=== PATIENT | female | born 1990 | race Caucasian/White ===

== ENCOUNTER 2016-09-24 13:50 | Observation (INO) ==
--- NOTE | 2016-09-24 14:39 | OB/GYN Progress Note ---
Date of Encounter: 09/24/16 Time of Encounter: 14:38 - Assessment and Plan (1) 35 weeks gestation of Current Visit: Yes Status: Acute (2) NST (non-stress test) reactive Current Visit: Yes Status: Acute (3) Vaginal bleeding Current Visit: Yes Status: Acute Pt reports bleeding started with intercourse and is now just a scant amount dark blood. Her pain has improved spontaneously. Good FM. Discharge home with precautions. Subjective - Subjective Interval history: 26 year-old presenting at 35 weeks with c/o bleeding since having sex last night and abdominal pain. She states that the bleeding is getting darker in color and less in amount. She also reports that since arrival to triage her pain has stopped. No other complaints. Good FM. No LOF. Antepartum ROS: vaginal bleeding, movement normal, contractions, no loss of fluid Objective - Vital Signs Vital Signs: Intake and Output 09/23/16 09/24/16 09/24/16 23:59 07:59 15:59 Other: Weight 77.3 kg Patient Weight 09/24/16 23:59 Weight 77.3 kg - Exam FHR: category 1 FHR comments: NST reactive Auscultation: bilateral: normal Abdomen: Present: soft, gravid. Absent: tenderness Uterus: Present: normal. Absent: tenderness
[2016-09-24 16:59] LABS: Bilirubin,Urine Negative (Negative); Blood,Urine Small (Negative); Clarity,Urine Turbid (Clear); Color,Urine Dark Yellow (Yellow); Glucose,Urine (UA) Normal (Normal); Ketones,Urine Negative (Negative); Leukocyte Esterase,Urine Negative (Negative); Nitrite,Urine Negative (Negative); PH,Urine 7.5 pH Units (5.0-8.0); Protein,Urine Trace mg/dL (Neg-Trace); Specific Gravity,Urine 1.019 (1.010-1.025); Urobilinogen,Urine Normal (Normal)
[2016-09-24 17:01] LABS: Bacteria,Urine Moderate per hpf (None-Few); RBC,Urine 0-3 per hpf (0-3); Squamous Epithelial Cell,Urine Many per lpf (None-Few)
[2016-09-24 17:14] LABS: Amorphous Sediment,Urine Moderate (Few); Hyaline Casts,Urine Few per lpf (None-Few); Renal Epithelial Cells,Urine Few per hpf (None-Few)
== END 2016-09-24 15:16 | disposition home or self-care (01) ==
LOC: 1NENULAB
PROVIDERS: ADMIT Obstetrics & Gynecology; ATTEND Obstetrics & Gynecology

== ENCOUNTER 2016-10-01 20:57 | Observation (INO) ==
[2016-10-01 21:47] LABS: Bilirubin,Urine Negative (Negative); Blood,Urine Negative (Negative); Clarity,Urine Turbid (Clear); Color,Urine Yellow (Yellow); Glucose,Urine (UA) Normal (Normal); Ketones,Urine Negative (Negative); Leukocyte Esterase,Urine Trace (Negative); Nitrite,Urine Negative (Negative); PH,Urine 7.5 pH Units (5.0-8.0); Protein,Urine Negative (Neg-Trace); Urobilinogen,Urine Normal (Normal)
[2016-10-01 21:50] LABS: Bacteria,Urine Few per hpf (None-Few); Hyaline Casts,Urine None Seen per lpf (None-Few); RBC,Urine 0-3 per hpf (0-3); Squamous Epithelial Cell,Urine Many per lpf (None-Few)
[2016-10-01 22:01] LABS: Amorphous Sediment,Urine Few (Few)
--- NOTE | 2016-10-02 11:53 | OB/GYN Progress Note ---
Date of Encounter: 10/01/16 Time of Encounter: 22:00 - Assessment and Plan (1) False labor Status: Acute SVE unchanged per RN. Discharge home with precautions. (2) 36 weeks gestation of Status: Acute Subjective - Subjective Interval history: Pt presented at 36 weeks gestation with c/o contractions since 1300. She was seen and evaluated by nursing staff. Antepartum ROS: movement normal, contractions, no loss of fluid, no vaginal bleeding Objective - Vital Signs Vital Signs: Intake and Output 10/01/16 10/02/16 10/02/16 23:59 07:59 15:59 Other: Weight 79.9 kg - Exam FHR comments: Reactive NST per RN - Labs Labs: Abnormal lab results Urine Clarity Turbid (Clear) A 10/01/16 21:30 Ur Leukocyte Esterase Trace (Negative) H 10/01/16 21:30 Urine Microscopic WBC 5-15 per hpf (0-3) H 10/01/16 21:30 Ur Squamous Epith Cells Many per lpf (None-Few) H 10/01/16 21:30 Ur Culture Indicated? YES (NO) A 10/01/16 21:30
== END 2016-10-01 22:30 | disposition home or self-care (01) ==
LOC: 1NENULAB
PROVIDERS: ADMIT Registered Nurse; ATTEND Registered Nurse

== ENCOUNTER 2016-10-08 20:53 | Inpatient (IN) ==
--- NOTE | 2016-10-08 17:18 | OB/GYN Progress Note ---
Date of Encounter: 10/08/16 Time of Encounter: 17:15 - Assessment and Plan (1) 37 weeks gestation of Current Visit: Yes Status: Acute Patient at 37 weeks and 1 day. Today in the office she was 4-5cm with a bulging sac. Will monitor patient here for any progression of lab. Will continue to monitor heart tones and contractions. Subjective - Subjective Principal diagnosis: 37 weeks gestation sent from office Interval history: Ms iLma is a 26yo female at 37 weeks and 1 day sent over from the office at 4-5cm with a bulging sac for labor evaluation. Patient reports contractions for the last week on and off and good movement. She denies any vaginal bleeding, discharge or fluid loss Patient reports that she feels fatigued but well overall and denies headache, vision changes, chest pain, SOB, changes in bowel or bladder. She is currently on subutex and she does smoke daily. Antepartum ROS: movement normal, contractions, no loss of fluid, no vaginal bleeding Objective - Vital Signs Vital Signs: Intake and Output 10/08/16 10/08/16 10/08/16 07:59 15:59 23:59 Other: Weight 79.8 kg Patient Weight 10/08/16 23:59 Weight 79.8 kg - Exam FHR: category 1 Auscultation: bilateral: normal Abdomen: Present: soft, gravid Cervical dilation: 4-5 cm
[~2016-10-08 20:53] MED LIST: Famotidine 20 MG/2 ML VIAL IVP PRN; Naloxone 0.4 MG/ML INJ IVP PRN; Ondansetron 4 MG/2 ML VIAL IVP PRN
--- NOTE | 2016-10-08 20:55 | OB/GYN History & Physical ---
Date of Encounter: 10/08/16 Time of Encounter: 20:52 Assessment and Plan (1) complicated by subutex maintenance, antepartum Current visit: Yes Status: Acute Continue subutex maintenance cord stat Infant 5 day hold (2) Tobacco use affecting in third trimester, antepartum Current visit: Yes Status: Acute smoking cessation education (3) 37 weeks gestation of Current visit: Yes Status: Acute Admit for spontaneous labor advanced dilatation and bulging membranes of a multigravida. May have Epidural for pain management if desires History of Present Illness Chief complaint: Advanced cervical dilation, Spontaneous labor HPI: Ms. Gonzales is a 26 year old female is a at 37w1d presents to labor and delivery from OB office for evaluation due to advanced dilation 4.5/80/-1 and bulging membranes. Patient reported irregular contractions, +FM, Denies LOF. Patient is is currently on Subutex 8mg po BID and an everyday smoker. After being monitored for a couple of hours patient progressed to 5.5/80/-1. We continued labor evaluation and patient progressed to /1. Patient was then admitted for delivery. Blood type: A+, Rubella: Immune, Hep B: nonreactive. GBS : Negative Past Med Surg Social Fam HX - Past Medical History Source: patient Medical history: asthma Psychiatric history: no psych history - Past Surgical History Surgical History: no surgical history - Social History Smoking Status: Current every day smoker Packs per day: 1 Smokeless Tobacco Status: No Alcohol use: none Drug use: none Current living situation: Home - Independent Activity Level: Independent ambulation Recent Out of Country Travel Within the Last 8 Weeks: No Exposure or Possible Exposure to Illness During Travel: No - Family History Mother Adopted: No Family Member Ethnicity: Non- Living Status: Hx Family Cardiac Disorders: Yes (MOTHER OF HEART ATTACK) Hx Family Respiratory Disorders: No Hx Family Cancer: No Hx Family GI Disorders: No Hx Family Endocrine Disorder: No Hx Family Neuromuscular Disorders: No Hx Family Neurologic Disorders: No Hx Family HEENT Disorders: No Hx Family Autoimmune Disorders: No Obstetrical History - Pregnancies : 5 Para: 3 Term: 3 : 0 Ab's: 1 Livin Medications and Allergies Subutex 8 mg PO BID 04/19/15 [History] Pnv95/Ferrous Fumarate/FA [ Caplet] 1 tab PO DAILY 10/01/16 [History] Albuterol Sulfate [Albuterol Inhaler] 2 puff IH Q4HR 10/08/16 [History] Allergies No Known Allergies Allergy (Verified 10/01/16 21:06) Review of System OB - Constitutional Constitutional ROS IM: no chills, no fever(s), no headache(s) - Cardiovascular Cardiovascular: pedal edema, no chest pain, no lightheadedness, no palpitations , no syncope - Respiratory Respiratory: no cough, no dyspnea - Gastrointestinal Gastrointestinal: no abdominal pain, no diarrhea, no heartburn, no nausea, no vomiting - Genitourinary Genitourinary: vaginal discharge, no abnormal vaginal bleeding, no dysuria, no flank pain, no urinary frequency, no urinary urgency, no vaginal odor Exam - Constitutional Constitutional: well developed, well nourished, no acute distress, average body habitus - HEENT HEENT: Normocephaly, Mucus Membranes Moist - Neck Neck exam: full ROM, supple - Lungs Respiratory exam: CTAB - Cardiovascular Cardiovascular exam: RRR, +S1, +S2 - Abdomen Abdomen: Present: bowel sounds normal, gravid, non tender - Extremities Extremities exam: normal capillary refill, normal inspection, pedal edema (2+) Deep Tendon Reflex Grade: 2+ Normal (no clonus) - Vagina Vagina: Present: normal moisture - Cervix Dilation: 6 Effacement: 90 Station: -1 - Uterus Uterus exam: Present: normal size - Anus/Rectum Anus/Rectum: Present: normal perianal skin (FHR 135 bpm moderate variability + 15x15 accels no decels noted. Cat. 1 tracing. Contractions 3-5 min apart.) Results All other labs normal. - VTE Reasons for not Prescribing Prophylaxis: Treatment not Indicated - Low risk for VTE
[2016-10-08 21:06] LABS: Basophils % 0.4 %; Eosinophils # 0.2 K/mcL (0.0-0.6); Eosinophils % 1.7 %; Hematocrit 33.6 % (35.3-44.9); Immature Granulocytes % 0.8 % (0-4); Lymphocytes % 21.4 %; Mean Corpuscular HGB Conc 32.7 g/dL (31.6-35.5); Mean Corpuscular Hemoglobin 27.7 pg (28.0-33.3); Mean Corpuscular Volume 84.6 fL (83.0-100.0); Mean Platelet Volume 10.2 fL (9.4-12.4); Monocytes # 0.6 K/mcL (0.0-1.3); Monocytes % 6.4 %; Neutrophils # 6.6 K/mcL (1.6-8.9); Platelet Count 346 K/mcL (140-400); Red Blood Count 3.97 M/mcL (3.82-4.97); Red Cell Distribution Width 14.4 % (11.5-14.5); Segmented Neutrophils % 69.3 %
[2016-10-08] MEDS: Ringers Solution, Lactated 1,000 ML IVC SCH (22:40)
[2016-10-08] MEDS ORDERED: Epidural Premix (fent/bupiv) 110 ML EP SCH (23:15)
[2016-10-08] MEDS ORDERED: Epidural Premix (fent/bupiv) 110 ML EP ONE (23:17)
--- NOTE | 2016-10-08 23:21 | Anesthesia Evaluation PreOp ---
Date of Encounter: 10/08/16 Time of Encounter: 23:18 - Past History Planned Operation: RODRÍGUEZ Cardiac History: Denies any Significant Hx Pulmonary History: Smoker, Asthma (INHALER YESTERDAY) FELL CUTTER History: Denies Any Significant HX Other Medical History: Denies Any Significant HX Anesthesia History: Past Anesthesia (EPIDURALS X 3) : Yes (37) Test: Positive Alcohol Use: none Drug use: none Medications and Allergies Subutex 8 mg PO BID 04/19/15 [History] Pnv95/Ferrous Fumarate/FA [ Caplet] 1 tab PO DAILY 10/01/16 [History] Albuterol Sulfate [Albuterol Inhaler] 2 puff IH Q4HR 10/08/16 [History] Allergies No Known Allergies Allergy (Verified 10/01/16 21:06) Anesthesia Results - Labs 10/08/16 20:55 Anesthesia Exam 112/57 fht 137 91 99% 16 Height: 65 Weight: 174 NPO (# of Hours): MN Pain Scale: 7 - HEENT Pupil (Motor): Pupils equal Mallampati: II Teeth: Normal Oral Opening: Greater than 3 - FELL CUTTER LOC: Oriented FELL CUTTER Motor: Normal RUE, Normal LUE, Normal RLE, Normal LLE, Normal Face FELL CUTTER Sensory: Normal: RUE, LUE, RLE, LLE, Face - Cardiac Rhythm: Regular Murmur: None JVD: No Carotid Bruit: No - Pulmonary Breath Sounds: bilateral Clear Respiratory Effort: Symmetrical Anesthesia Assess/Plan ASA Score: 2 Modified Miah Scale for Level of Consciousness: Cooperative, oriented, and tranquil Anesthetic Plan: MAC Autologous Blood: No Monitoring Plan: Standard Monitors
--- NOTE | 2016-10-08 23:53 | Anesthesia Procedures ---
Date of Encounter: 10/08/16 Time of Encounter: 23:50 Procedures: Anesthesia - Epidural/Spinal Patient ID/Chart reviewed: Yes Patient examined: Yes OB Eval: Gestational age: 37.1 OB Eval: : 5 OB Eval: Hx Para: 3 OB Eval: Dilated at (cm): 6 OB Eval: Contractions: Non-stressed pattern Consent Obtained: Yes Supplemental Oxygen: None/Room Air Site Prep: Aseptic Technique, Sterile prep and drape, Povidone-Iodine 1% Patient position: upright Local Anesthetic: Lidocaine 1% Amount of Local Anesthetic used: 3 Touhy Needle Gauge: 18 Touhy Needle Depth (cm): 7 Catheter Depth at Skin (cm): 10 Test Dose (1.5% Lido + Epi): Volume given (mls): 3 Test Dose Result: Negative Loading Dose Administered: Thru Catheter Infusion Med: 0.125% Bupivacaine w/ 2 mcg/ml Fentanyl Infusion Rate (mls/hr): [address]: Tegaderm, Tape Interspace Used: L4-L5 Loss of Resistance (BRIEN): Yes Blood: No CSF: No Paresthesia: No Procedure: RODRÍGUEZ x 2 attempts, first pass catheter with heme, pulled down one space, BRIEN saline, negative heme negative CSF,
--- NOTE | 2016-10-09 00:21 | OB Labor Progress Note ---
Date of Encounter: 10/09/16 Time of Encounter: 00:19 Labor Progress Note - Subjective Subjective: Patient resting comfortably with epidural in place. Discussed POC with patient. Patient denies any questions or concerns. - Cervix Cervix: 7.5/90/0 - Heart Tones Heart Tones: 125 bpm moderate variability +15x15 accels no decels noted. Cat. 1 tracing. - Stark Stark: 4-5 min - Interventions Interventions: SVE, AROM moderate amount of clear fluid. Patient tolerated well. - Plan Plan: Continue labor management.
[2016-10-09] MEDS ORDERED: *HR* FentaNYL (PF) 100 MCG/2 ML VIAL ONE (02:36)
[2016-10-09] MEDS ORDERED: Bupivacaine/EPI 1:200k 0.25%PF 10 ML VIAL INFILT ONE (02:37)
[2016-10-09] MEDS: Ringers Solution, Lactated 1,000 ML IVC SCH (03:32)
[2016-10-09] MEDS ORDERED: Oxytocin 20 units/ LR 1000 mL 20 UNIT/1,000 ML BAG IVC ONE ×2 (03:47→06:52)
[2016-10-09] MEDS ORDERED: Ibuprofen 600 MG TABLET PO ONE (04:26)
--- NOTE | 2016-10-09 04:40 | OB/GYN Procedure Note ---
Delivery - Delivery Date: 10/09/16 Provider: Leslee Gillette Intrapartum events: none Delivery induction: none Delivery augmentation: rupture of membranes Delivery monitor: external FHT, external uterine Anesthesia: epidural Estimated Blood Loss: 300 - (s) Infant A Delivery Date: 10/09/16 Infant Delivery Time: 04:00 Presentation: vertex Position: JAYDON Route of delivery: Gender: Male Viability: Viable Pounds: 7 Ounces: 3 Weight Gram: 3270 kg at 1 minute: 9 at 5 mins: 10 Shoulder Dystocia: not encountered Placenta: spontaneous Cord: 3 umbilical vessels - Repair Episiotomy: none Laceration Description: None - Complications Delivery complications: none Delivery comments: Called to patient's room. Patient was complete and +2 station. Patient was placed in stirrups and prepped for delivery. Patient then began to push with contractions. Patient delivered a viable male infant, was placed on maternal abdomen. No nuchal, shoulder dystocia or meconium was encountered. Perineum was intact. Cord was clamped and cut after pulsation ceased. Placenta delivered spontaneously and intact. was placed skin to skin. Both mother and baby are stable in recovery. - Disposition Mom disposition: stable in LDR [place] disposition: stable in LDR
[2016-10-09] MEDS ORDERED: Oxytocin 20 units/ LR 1000 mL 20 UNIT/1,000 ML BAG IV SCH (06:52)
[2016-10-09] MEDS ORDERED: Lanolin 7 G OINT...G. TP PRN (06:52)
[2016-10-09] MEDS: Prenatal Vit/FA 1 EACH TABLET PO SCH (08:46)
[2016-10-09] MEDS: Acetaminophen 325 MG TABLET PO PRN (08:46)
[2016-10-09] MEDS ORDERED: Patient Taking Own Medication 1 EACH PO SCH (09:00)
[2016-10-09] MEDS: Ibuprofen 600 MG TABLET PO PRN ×2 (12:55→19:48)
[2016-10-10] MEDS: Acetaminophen 325 MG TABLET PO PRN (00:27)
[2016-10-10] MEDS: Ibuprofen 600 MG TABLET PO PRN (05:01)
[2016-10-10] MEDS: Prenatal Vit/FA 1 EACH TABLET PO SCH (07:42)
[2016-10-10 09:49] VITALS: BP 110/66
[2016-10-10] MEDS ORDERED: Albuterol 2.5 MG/3 ML NEBULIZER IH PRN (10:37)
--- NOTE | 2016-10-10 10:40 | Discharge Summary ---
Date of Encounter: 10/10/16 Time of Encounter: 10:38 - Discharge Diagnosis (1) Vaginal delivery Priority: Primary Status: Acute Comments: Pt meeting milestones. - Discharge Medications Prescriptions: Ibuprofen [Motrin] 600 mg PO Q6HR PRN #60 tablet PRN Reason: Cramping Docusate [Colace] 100 mg PO BID #60 capsule Home Medications: Subutex 8 mg PO BID 04/19/15 [History] Pnv95/Ferrous Fumarate/FA [ Caplet] 1 tab PO DAILY 10/01/16 [History] Albuterol Sulfate [Albuterol Inhaler] 2 puff IH Q4HR 10/08/16 [History] Docusate [Colace] 100 mg PO BID #60 capsule 10/10/16 [Rx] Ibuprofen [Motrin] 600 mg PO Q6HR PRN #60 tablet 10/10/16 [Rx] Lanolin [Lansinoh] 1 appl TP TID PRN #0 oint...g. 10/10/16 [Rx] Allergies/Adverse Reactions: Allergies No Known Allergies Allergy (Verified 10/01/16 21:06) Data Procedures and tests throughout hospitalization: Laboratory Tests 10/08/16 20:55 WBC 9.5 RBC 3.97 Hgb 11.0 L Hct 33.6 L MCV 84.6 MCH 27.7 L MCHC 32.7 RDW 14.4 Plt Count 346 MPV 10.2 Immature Gran % 0.8 Seg Neutrophils % 69.3 Lymphocytes % 21.4 Monocytes % 6.4 Eosinophils % 1.7 Basophils % 0.4 Neutrophils # 6.6 Lymphocytes # 2.0 Monocytes # 0.6 Eosinophils # 0.2 Basophils # 0.0 Date of admission: 10/08/16 20:56 Primary care physician: PCP NO Consults: 10/09/16 06:52 Consult to Gun Stock Checker [CONS] Routine Comment: Vaginal delivery, consult needed Consult to Composition Weatherboard Applier [CONS] Routine Reason for SW Consult: subutex RX in Discharging clinician: Alba Patton Anticipated date of discharge: 10/10/16 - Patient Status Disposition: Home, Self-Care Condition: Good Functional capacity at discharge: independent ambulation Overall status at discharge: patient is progressing back to baseline - Discharge Instructions Follow Up With: Alba Patton CNM [Non-Partnered Physician] - (Feb. 27, 2017 @ 3:00 pm) NO,PCP [Primary Care Provider] - - Diet and Activity Activity: increase activity as tolerated Diet: advance to your usual diet Hospital Course Reason for admission: active labor Delivery: Episiotomy: none Other procedures: none complications: none Discharge diagnosis: IUP at term delivered [place] baby: male Hospital course: - Delivery Date: 10/09/16 Provider: Leslee Gillette Intrapartum events: none Delivery induction: none Delivery augmentation: rupture of membranes Delivery monitor: external FHT, external uterine Anesthesia: epidural Estimated Blood Loss: 300 - (s) Infant A Delivery Date: 10/09/16 Delivery Time: 04:00 Presentation: vertex Position: JAYDON Route of delivery: Gender: Male Viability: Viable Pounds: 7 Ounces: 3 Weight Gram: 3270 kg at 1 minute: 9 at 5 mins: 10 Shoulder Dystocia: not encountered Placenta: spontaneous Cord: 3 umbilical vessels - Repair Episiotomy: none Laceration Description: None - Complications Delivery complications: none - Disposition Mom disposition: fanny PPD#1 [place] disposition: [facility] distention and tachypnea Time Attestation: Total time spent providing and/or coordinating discharge services: Time Spent: Less than 30 minutes Exam - Constitutional Vitals: Temp Pulse Resp BP Pulse Ox 97.9 F 68 16 110/66 97 10/10/16 07:52 10/10/16 07:52 10/10/16 07:52 10/10/16 07:52 10/10/16 07:52 General appearance IM: A&O X 3, pleasant, no acute distress - Respiratory Respiratory exam: Present: wheezes (Pt denies CP or SOB, she does smoke) - Cardiovascular Cardiovascular exam IM: Present: RRR, +S1, +S2 - GI/Abdominal GI/Abdominal exam IM: soft - Rectal Rectal exam: deferred - Uterine Tone: Firm Uterus Position: At Umbilicus - Extremities Exam Extremities exam IM: Present: normal inspection, pedal edema (2+ edema bilaterally) - Neurological Exam Neurological exam: normal gait, oriented X3 - Psychiatric Additional comments: reports good mood
== END 2016-10-10 13:30 | disposition home or self-care (01) | DRG 560 ==
LOC: 1NENULAB → 1NENUOBS 10-09 06:56
PROVIDERS: ADMIT Obstetrics & Gynecology; ATTEND Obstetrics & Gynecology

== ENCOUNTER 2018-05-07 11:37 | Observation (INO) ==
[2018-05-07] MEDS ORDERED: Ondansetron 4 MG/2 ML VIAL IVP PRN (14:08)
[2018-05-07] MEDS ORDERED: Naloxone 0.4 MG/ML INJ IVP PRN (14:08)
[2018-05-07] MEDS ORDERED: Ketorolac 30 MG/ML VIAL IVP ONE (14:10)
[2018-05-07] MEDS ORDERED: Morphine Oral CONC 5 MG/0.25 ML ORAL.SYG PO PRN (14:12)
[2018-05-07] MEDS ORDERED: Acetaminophen 325 MG TABLET PO PRN (14:12)
[2018-05-07] MEDS ORDERED: OXYCODONE Oral CONC 10 MG/0.5 ML ORAL.SYG SL PRN (14:15)
[2018-05-07 14:18] LABS: INR 1.1; Prothrombin Time 12.5 Seconds (9.4-12.1)
--- NOTE | 2018-05-07 14:23 | General Surg History&Physical ---
Date of Encounter: 05/07/18 Time of Encounter: 14:00 Assessment and Plan (1) Abdominal pain Current Visit: No Status: Acute The assessment and plan as outlined above was discussed with the patient and/or family members who expressed understanding and agreement. All questions were answered. NPO IV fluids HIDA scan to evaluate for bile leak IR consulted- no drainable fluid collection at this time Supportive care and pain control IS every 1 hour while awake PPI therapy daily Repeat am labs- CBC, BMP, Hepatic panel Qualifiers: Abdominal location: right upper quadrant Qualified Code(s): R10.11 - Right upper quadrant pain (2) S/P cholecystectomy Current Visit: Yes Status: Acute The assessment and plan as outlined above was discussed with the patient and/or family members who expressed understanding and agreement. All questions were answered. S/P lap ricky on 05/05/[address] Anderson HIDA scan to r/o bile leak (3) Asthma Current Visit: Yes Status: Chronic The assessment and plan as outlined above was discussed with the patient and/or family members who expressed understanding and agreement. All questions were answered. Duonebs every 6 hours IS every 1 hour while awake Qualifiers: Asthma severity: unspecified severity Asthma persistence: intermittent Asthma complication type: uncomplicated Qualified Code(s): J45.20 - Mild intermittent asthma, uncomplicated (4) DVT prophylaxis Current Visit: Yes Status: Acute The assessment and plan as outlined above was discussed with the patient and/or family members who expressed understanding and agreement. All questions were answered. EPCDs bilateral lower extremities for DVT prophylaxis Ambulate hallways TID wit assistance History of Present Illness Chief complaint: RUQ abdominal pain HPI: Ms. Gonzales is a 28 year old female who is s/p laparoscopic cholecystectomy on with Dr. Anderson. She states that she felt good yesterday with what she considered typical post-operative discomfort. She states that she woke up this morning with severe RUQ pain. Movement and breathing makes the pain worse. She has never expienced pain like this in the past. She admits to nausea and vomiting this morning. Denies any hematemesis or coffee ground emesis. She did pass flatus yesterday but states she has had none today. Denies any bowel movements. Denies any fever/chills. Denies any difficulty with urination. Admits to shortness of breath and wheezing. Denies any chest pains. She presented to [facility] ED for further work-up and evaluation. She did have a CT scan which is concerning for a possible bile leak. She has been transferred to [facility] for further work-up and treatment. Past Med Surg Social Fam HX - Past Medical History Source: patient Medical history: asthma Additional medical history: LMP 01/2016, MISCARRIAGE 2008, SUBUTEX X3 YEARS (FOR OPIATE ADDICTION) Psychiatric history: no psych history - Past Surgical History Surgical History: cholecystectomy (05/05/[address] Anderson) Additional surgical history: Lap GB/appy 05/05/18 - Social History Smoking Status: Current every day smoker Smokeless Tobacco Status: No Alcohol use: none Drug use: IV Drug Use Current living situation: Home - Independent Activity Level: Independent ambulation - Family History Mother Adopted: No Family Member Ethnicity: Non- Living Status: Hx Family Cardiac Disorders: Yes (MOTHER OF HEART ATTACK) Hx Family Respiratory Disorders: No Hx Family Cancer: No Hx Family GI Disorders: No Hx Family Endocrine Disorder: No Hx Family Neuromuscular Disorders: No Hx Family Neurologic Disorders: No Hx Family HEENT Disorders: No Hx Family Autoimmune Disorders: No Medications and Allergies Albuterol Sulfate [Albuterol Inhaler] 2 puff IH Q4HR PRN 10/08/16 [History] Buprenorphine HCl [Subutex] 8 mg SL BID 05/05/18 [History] OxyCODONE/APAP 10/325 [Percocet 10/325 MG] 1 each PO Q8HR PRN 7 Days #18 tablet 05/05/18 [Rx] 3 Allergy/AdvReac Type Severity Reaction Status Date / Time No Known Allergies Allergy Verified 05/05/18 07:05 Review of Systems All systems PM: reviewed and no additional remarkable complaints except as stated (in the HPI) All systems PM: The remainder of the systems were reviewed and are negative General Surgery Exam Initial Vital Signs Temp Pulse Resp BP Pulse Ox 98.1 F 74 14 125/77 98 05/07/18 13:39 05/07/18 13:39 05/07/18 13:39 05/07/18 13:39 05/07/18 13:39 - General physical appearance well developed, well nourished, moderate distress, moderate pain - Eyes normal ocular movement - ENT normal mucosa, atraumatic, normocephalic - Neck trachea midline - Respiratory normal respiratory effort, clear to auscultation, other (diminished bibasilar bases) - Cardiovascular Cardiovascular exam: Present: RRR - Abdomen Abdomen general surgery: Present: bowel sounds present, soft, tender Abdominal Tenderness: Present: RUQ - Incision Incision: Present: clean and dry, intact - Integumentary Integumentary general surgery: Present: warm and dry - Neurologic Present: CN 2-12 grossly intact - Psychiatric Psychiatric general surgery: Present: appropriate, oriented to person, oriented to place, oriented to time, speech is normal, memory intact Results - Labs Abnormal lab results PT 12.5 Seconds (9.4-12.1) H 05/07/18 14:00 All other labs normal. - Imaging CT scan - abdomen: report reviewed CT scan - pelvis: report reviewed - Attending Attestation For this encounter, I have reviewed the MEDICATION ADMINISTRATION PROFESSIONAL or PA documentation, treatment plan, and medical decision making; and I have had face to face time with this patient.
[2018-05-07] MEDS: 0.9 % Sodium Chloride 1,000 ML IVC SCH (14:58)
[2018-05-07] MEDS: OXYCODONE Oral CONC 10 MG/0.5 ML ORAL.SYG SL PRN ×3 (14:58→23:33)
[2018-05-07] MEDS: Ipratropium/Albuterol Neb 3 ML IH SCH ×3 (15:52→21:57)
[2018-05-07] MEDS: Ketorolac 15 MG/ML VIAL IVP SCH ×2 (17:15→23:33)
[2018-05-07] MEDS: Acetaminophen IV 1,000 MG/100 ML INFUS..BTL IVPB SCH (22:23)
[2018-05-08] MEDS: 0.9 % Sodium Chloride 1,000 ML IVC SCH ×3 (02:08→21:40)
[2018-05-08] MEDS: Ipratropium/Albuterol Neb 3 ML IH SCH ×4 (03:36→21:55)
[2018-05-08] MEDS: OXYCODONE Oral CONC 10 MG/0.5 ML ORAL.SYG SL PRN ×5 (03:36→20:10)
[2018-05-08] MEDS: Acetaminophen IV 1,000 MG/100 ML INFUS..BTL IVPB SCH ×4 (04:12→21:41)
[2018-05-08] MEDS: Ketorolac 15 MG/ML VIAL IVP SCH ×3 (05:48→17:26)
[2018-05-08] MEDS: Pantoprazole 40 MG VIAL IVP SCH (07:24)
[2018-05-08] MEDS: Nicotine 21 MG PATCH.TD24 TD SCH (07:24)
[2018-05-08 07:29] LABS: Basophils % 0.4 %; Eosinophils % 0.3 %; Hematocrit 35.9 % (35.3-44.9); Hemoglobin 11.9 g/dL (11.5-15.4); Immature Granulocytes % 0.2 % (0-4); Lymphocytes # 1.5 K/mcL (0.6-4.6); Lymphocytes % 15.3 %; Mean Corpuscular HGB Conc 33.1 g/dL (31.6-35.5); Mean Corpuscular Hemoglobin 30.6 pg (28.0-33.3); Mean Corpuscular Volume 92.3 fL (83.0-100.0); Mean Platelet Volume 11.1 fL (9.4-12.4); Monocytes # 0.6 K/mcL (0.0-1.3); Monocytes % 5.9 %; Neutrophils # 7.4 K/mcL (1.6-8.9); Platelet Count 208 K/mcL (140-400); Red Blood Count 3.89 M/mcL (3.82-4.97); Red Cell Distribution Width 13.5 % (11.5-14.5); Segmented Neutrophils % 77.9 %
[2018-05-08 08:02] LABS: Alanine Aminotransferase 46 Units/L (7-52); Albumin 3.8 g/dL (3.5-5.7); Albumin/Globulin Ratio 1.5 (1.1-2.2); Alkaline Phosphatase 90 Units/L (34-104); Aspartate Amino Transferase 21 Units/L (13-39); BUN/Creatinine Ratio 18 (6-26); Bilirubin,Direct 0.7 mg/dL (0.0-0.2); Bilirubin,Indirect 0.6 mg/dL (0.0-1.2); Bilirubin,Total 1.3 mg/dL (0.3-1.0); Blood Urea Nitrogen 7 mg/dL (6-20); Calcium 8.2 mg/dL (8.6-10.3); Carbon Dioxide 23 mEq/L (23-29); Chloride 109 mEq/L (98-107); Globulin 2.5 g/dL (2.4-3.5); Glucose 95 mg/dL (70-105); Osmolality,Calculated 284 (280-300); Potassium 3.4 mEq/L (3.5-5.1); Sodium 138 mEq/L (136-145); Total Protein 6.3 g/dL (6.4-8.9); eGFR For Non-African Americans > 60 (> 60)
[2018-05-08] MEDS ORDERED: *HR* FentaNYL (PF) 100 MCG/2 ML VIAL IVP ONE (09:56)
[2018-05-08] MEDS ORDERED: *HR* Midazolam HCl 2 MG/2 ML VIAL IVP ONE (09:56)
--- NOTE | 2018-05-08 14:38 | General Surgery Progress Note ---
Date of Encounter: 05/08/18 Time of Encounter: 14:35 - Assessment and Plan (1) Bile leak, postoperative Current Visit: Yes Status: Acute Drain in place. She feels much better. Will try for ERCP to decompress the biliary tree. Subjective Patient reports: feels better Objective Vital Signs - Last 8 Hours Temp Pulse Resp BP Pulse Ox 05/08/18 14:14 98.1 F 99 14 119/71 97 05/08/18 11:12 98.0 F 87 14 121/75 97 05/08/18 10:31 88 27 110/52 05/08/18 09:55 16 117/74 98 Intake and Output 05/07/18 05/08/18 05/08/18 23:59 07:59 15:59 Intake Total 100 / 100 1650 / 1650 550 / 550 Output Total 0 / 0 300 / 300 750 / 750 Balance 100 / 100 1350 / 1350 -200 / -200 Intake: IV Fluids 100 / 100 1650 / 1650 550 / 550 0.9 % Sodium Chloride 1,000 ML 1550 / 1550 450 / 450 @ 100 mls/hr IVC .Q10H JANETT Rx#: [id number] Ofirmev 1,000 mg/100 ml 1,000 100 / 100 100 / 100 100 / 100 mg In 100 ml @ 400 mls/hr IVPB Q6H JANETT Rx#:[id number] Oral 0 / 0 0 / 0 0 / 0 Output: Urine 0 / 0 300 / 300 300 / 300 Wound Drainage 450 / 450 right abd bile drain 450 / 450 Other: Meal NPO Dinner NPO Blood Glucose* 101 97 107 - General physical appearance well developed, well nourished - Eyes normal ocular movement - ENT normal nares - Neck Neck exam: trachea midline - Respiratory normal respiratory effort - Cardiovascular Cardiovascular exam: Present: RRR - Abdomen Abdomen: Present: bowel sounds present, soft - Neurologic CN 2-12 grossly intact, normal sensation - Labs 05/08/18 07:02 05/08/18 07:02 Diabetes panel 05/08/18 Range/Units 07:02 Sodium 138 (136-145) mEq/L Potassium 3.4 L (3.5-5.1) mEq/L Chloride 109 H (98-107) mEq/L Carbon Dioxide 23 (23-29) mEq/L BUN 7 (6-20) mg/dL Creatinine 0.39 L (0.60-1.20) mg/dL Glucose 95 (70-105) mg/dL Calcium 8.2 L (8.6-10.3) mg/dL AST 21 (13-39) Units/L ALT 46 (7-52) Units/L Alkaline Phosphatase 90 (34-104) Units/L Albumin 3.8 (3.5-5.7) g/dL Calcium panel 05/08/18 Range/Units 07:02 Calcium 8.2 L (8.6-10.3) mg/dL Albumin 3.8 (3.5-5.7) g/dL Pituitary panel 05/08/18 Range/Units 07:02 Sodium 138 (136-145) mEq/L Potassium 3.4 L (3.5-5.1) mEq/L Chloride 109 H (98-107) mEq/L Carbon Dioxide 23 (23-29) mEq/L BUN 7 (6-20) mg/dL Creatinine 0.39 L (0.60-1.20) mg/dL Glucose 95 (70-105) mg/dL Calcium 8.2 L (8.6-10.3) mg/dL Adrenal panel 05/08/18 Range/Units 07:02 Sodium 138 (136-145) mEq/L Potassium 3.4 L (3.5-5.1) mEq/L Chloride 109 H (98-107) mEq/L Carbon Dioxide 23 (23-29) mEq/L BUN 7 (6-20) mg/dL Creatinine 0.39 L (0.60-1.20) mg/dL Glucose 95 (70-105) mg/dL Calcium 8.2 L (8.6-10.3) mg/dL Total Bilirubin 1.3 H (0.3-1.0) mg/dL AST 21 (13-39) Units/L ALT 46 (7-52) Units/L Alkaline Phosphatase 90 (34-104) Units/L Albumin 3.8 (3.5-5.7) g/dL Consult Discharge Plan - Plan Referrals: NONE,PCP [Primary Care Provider] -
[2018-05-09] MEDS: Ketorolac 15 MG/ML VIAL IVP SCH ×4 (00:06→20:24)
[2018-05-09] MEDS: OXYCODONE Oral CONC 10 MG/0.5 ML ORAL.SYG SL PRN ×3 (02:39→14:15)
[2018-05-09] MEDS: Ipratropium/Albuterol Neb 3 ML IH SCH ×4 (03:54→22:31)
[2018-05-09] MEDS: Acetaminophen IV 1,000 MG/100 ML INFUS..BTL IVPB SCH ×4 (04:26→22:03)
[2018-05-09] MEDS: Pantoprazole 40 MG VIAL IVP SCH (08:30)
[2018-05-09] MEDS: 0.9 % Sodium Chloride 1,000 ML IVC SCH (08:31)
[2018-05-09] MEDS: Nicotine 21 MG PATCH.TD24 TD SCH (08:31)
--- NOTE | 2018-05-09 08:42 | General Surgery Progress Note ---
<Sudeep Bryson R - Last Filed: 05/09/18 09:08> Date of Encounter: 05/09/18 Time of Encounter: 08:40 - Assessment and Plan (1) Bile leak, postoperative Current Visit: Yes Status: Acute Consult in with Dr. Will for possible ERCP IVF Continue pain management Continue PPI NPO Labs- AM CBC with diff, CMP, Lipase, Bili total and fraction (2) Asthma Current Visit: Yes Status: Chronic Continue Nuonebs Q6H IS every 1 hour while awake Qualifiers: Asthma severity: unspecified severity Asthma persistence: intermittent Asthma complication type: uncomplicated Qualified Code(s): J45.20 - Mild intermittent asthma, uncomplicated (3) Opioid dependence on agonist therapy Current Visit: Yes Status: Chronic Hold Suboxone Will manage acute pain with NSAID and opiod medications (4) S/P cholecystectomy Current Visit: Yes Status: Acute S/P lap ricky with Dr. Anderson 05/05/2018 Continue management as outlined above (5) DVT prophylaxis Current Visit: Yes Status: Acute EPCDs bilateral lower extremities Ambulate hallways TID with assistance Subjective Narrative: patient reports on going abdominal pain, generalized, worse than yesterday, however she is due for pain med dose. Patient is treated as outpatient with suboxone, for this reason was not on post lap ricky narcotic meds. Has been given opiod medications as inpatient status. denies nausea, vomiting, diarrhea. Denies urinary symptoms, urgency or dysuria. Reports no bowel movement for 6 days, is passing flatus. Has been NPO since midnight. No difficulty ambulating. Objective Vital Signs - Last 8 Hours Temp Pulse Resp BP Pulse Ox 05/09/18 06:34 98.2 F 69 14 114/73 97 05/09/18 04:51 98.5 F 74 14 125/79 97 Intake and Output 05/08/18 05/09/18 05/09/18 23:59 07:59 15:59 Intake Total 923 / 923 1100 / 1100 Output Total 1000 / 1000 Balance -77 / -77 1085 / 1085 Intake: IV Fluids 683 / 683 1100 / 1100 0.9 % Sodium Chloride 1,000 ML 583 / 583 1000 / 1000 @ 100 mls/hr IVC .Q10H JANETT Rx#: [id number] Ofirmev 1,000 mg/100 ml 1,000 100 / 100 100 / 100 mg In 100 ml @ 400 mls/hr IVPB Q6H JANETT Rx#:[id number] Oral 240 / 240 0 / 0 Output: Urine 1000 / 1000 0 / 0 Wound Drainage right abd bile drain Other: Meal Dinner Percent of Meal Consumed 25% Weight 71 kg Blood Glucose* 87 Patient Weight 05/09/18 23:59 Weight 71 kg - General physical appearance well developed, moderate pain - Eyes PERRL, normal ocular movement - ENT atraumatic, normocephalic - Neck Neck exam: trachea midline - Respiratory normal respiratory effort, clear to auscultation - Abdomen Abdomen: Present: bowel sounds present, tender (Diffusely tender to palpation, no tenderness to heeltap or rebound), guarding (voluntary gaurding ) Additional Comments: ELIZABETH drain with ~100 mL of red serious fluid. - Incision Incision: Present: clean and dry, intact - Neurologic CN 2-12 grossly intact - Psychiatric oriented to person, oriented to place, speech is normal - Labs 05/08/18 07:02 05/08/18 07:02 Consult Discharge Plan - Plan Referrals: NONE,PCP [Primary Care Provider] - <Bello Anderson - Last Filed: 05/09/18 18:10> Date of Encounter: 05/09/18 Objective Vital Signs - Last 8 Hours Temp Pulse Resp BP Pulse Ox 05/09/18 17:59 77 16 122/81 99 05/09/18 15:32 99.3 F 81 18 117/75 100 05/09/18 10:51 98.1 F 86 14 116/72 98 Intake and Output 05/09/18 05/09/18 05/09/18 07:59 15:59 23:59 Intake Total 1100 / 1100 100 / 100 Output Total 400 / 400 Balance 1085 / 1085 -300 / -300 Intake: IV Fluids 1100 / 1100 100 / 100 0.9 % Sodium Chloride 1,000 ML 1000 / 1000 @ 100 mls/hr IVC .Q10H [facility]ETT Rx#: [id number] Ofirmev 1,000 mg/100 ml 1,000 100 / 100 100 / 100 mg In 100 ml @ 400 mls/hr IVPB Q6H JANETT Rx#:[id number] Oral 0 / 0 0 / 0 Output: Urine 0 / 0 100 / 100 Wound Drainage 300 / 300 right abd bile drain 300 / 300 Other: Meal NPO BREAKFAST # Voids 1 Weight 71 kg Blood Glucose* 87 Patient Weight 05/09/18 23:59 Weight 71 kg - Labs 05/08/18 07:02 05/08/18 07:02 - Attending Attestation I examined this patient and my medical decision-making was reviewed with the Resident Physician. I agree with the documented findings, disposition and treatment plan as described except to the extent set forth below. The patient is seen and evaluated on morning rounds with the resident and the clinical nurse practitioner. The patient had a laparoscopic cholecystectomy and cholangiogram last . She developed abdominal over the weekend. She presented to the emergency room and a follow-up hepatobiliary scan demonstrated postoperative bile leak. She underwent trans-peritoneal drainage by interventional radiology without relief of her pain. The cholangiogram demonstrated a adequate length on the cystic duct and no evidence of leak. She now presents for ERCP to normalize the pressure in the bile duct system. Bello Anderson MD FACS
--- NOTE | 2018-05-09 08:58 | Gastroenterology Consult Note ---
<Pk Sung - Last Filed: 05/09/18 14:18> Date of Encounter: 05/09/18 Time of Encounter: 08:57 - Assessment and plan (1) Bile leak, postoperative Current Visit: Yes Status: Acute Assessment and plan: - Presented with right upper quadrant pain after laparoscopic cholecystectomy on 05/05 - HIDA scan on 05/07 positive for bile leak - IR was consulted for an IR drain placement; no drainable fluid collection at this time - CT scan has been ordered - Total bilirubin: 1.3, direct bilirubin 0.7 Plan: - ERCP to decompress the biliary tree - Patient is currently NPO - Toradol, morphine, oxycodone for pain control - Zofran when necessary - Protonix 40 mg IV daily (2) S/P cholecystectomy Current Visit: Yes Status: Acute Assessment and plan: - S/P lap ricky on 05/05/[address] Anderson - Presented with RUQ pain, HIDA scan demonstrated bile leak - Plan as above (3) Asthma Current Visit: Yes Status: Chronic Assessment and plan: - DuoNebs every 6 hours - Incentive spirometry Qualifiers: Asthma severity: unspecified severity Asthma persistence: intermittent Asthma complication type: uncomplicated Qualified Code(s): J45.20 - Mild intermittent asthma, uncomplicated (4) DVT prophylaxis Current Visit: Yes Status: Acute Assessment and plan: - Ambulate hallways TID wit assistance - EPCDs - Time Spent With Patient Total time spent is greater than 50% in coordination of care (as documented) at patient's floor/unit and/or counseling patient: GI History of Present Illness - Data of Consult Consult date: 05/09/18 Requesting Physician: Bello Anderson MD - Consult Narrative Reason for consult: Biliary leak status post cholecystectomy History of present illness: Ms. Gonzales is a 28-year-old female with a PMH of asthma who is s/p laparoscopic cholecystectomy on 05/05/[address] Anderson. Patient reports that on the morning of 05/07, she woke up with severe right upper quadrant abdominal pain. No prior episodes. Pain exacerbated with movement and inspiration. Admits to N/V, shortness of breath, and wheezing. Denied hematemesis, coffee-ground emesis. Did not pass flatus that day. Also denied having any bowel movements. Patient presented to [facility] emergency department for further evaluation. CT scan demonstrated a possible bile leak. She was transferred to [facility] for further workup. A HIDA scan was performed on 05/07, which confirmed the presence of a bile leak. IR was consulted for drain placement. Drain observed at bedside; approximately 100 cc of serosanguineous fluid observed. Vital signs are stable and patient has been afebrile for the last 24 hours. Patient was seen and examined at that time; reports generalized abdominal pain. Reports that her right upper quadrant pain that she initially presented with has largely resolved. She has had no bowel movement for the last 6 days. Has been passing flatus. Patient last ate at approximately 10 PM; denies any difficulty eating. Denies fever, chills, nausea, or vomiting. No further complaints at this time. Past Med Surg Social Fam HX - Past Medical History Medical history: asthma Additional medical history: LMP 01/2016, MISCARRIAGE 2008, SUBUTEX X3 YEARS (FOR OPIATE ADDICTION) Psychiatric history: no psych history - Past Surgical History Surgical History: cholecystectomy (05/05/[address] Anderson) Additional surgical history: Lap GB/appy 05/05/18 - Social History Smoking Status: Current every day smoker Smokeless Tobacco Status: No Alcohol use: none Drug use: IV Drug Use - Family History Mother Adopted: No Family Member Ethnicity: Non- Living Status: Hx Family Cardiac Disorders: Yes (MOTHER OF HEART ATTACK) Hx Family Respiratory Disorders: No Hx Family Cancer: No Hx Family GI Disorders: No Hx Family Endocrine Disorder: No Hx Family Neuromuscular Disorders: No Hx Family Neurologic Disorders: No Hx Family HEENT Disorders: No Hx Family Autoimmune Disorders: No - Gastrointestinal Gastrointestinal: Present: abdominal pain, change in bowel habits (No bowel movement for 6 days), nausea - Constitutional Vitals: Temp Pulse Resp BP Pulse Ox 98.2 F 69 14 114/73 97 05/09/18 06:34 05/09/18 06:34 05/09/18 06:34 05/09/18 06:34 05/09/18 06:34 - Other Additional findings: General: Mild distress, appears to be in pain ENT: Atraumatic, normocephalic Neck: trachea midline Cardiac: Regular rate and rhythm, S1, S2, no murmurs rubs or gallops. Respiratory: Clear to auscultation bilaterally, no wheezes, rales, or rhonchi Abdomen: Normoactive bowel sounds in all 4 quadrants. Diffuse tenderness, voluntary guarding. Worse with palpation. ELIZABETH drain with approximately 100 mL of serosanguineous fluid. Laparoscopic incisions visualized, clean, dry, intact. Psych: Speech is normal, mood appropriate Results - Labs CBC & Chem 7: 05/08/18 07:02 05/08/18 07:02 Labs: Last Result Calcium 8.2 mg/dL (8.6-10.3) L 05/08/18 07:02 Entire Visit Hgb 11.9 g/dL (11.5-15.4) 05/08/18 07:02 Hct 35.9 % (35.3-44.9) 05/08/18 07:02 PT 12.5 Seconds (9.4-12.1) H 05/07/18 14:00 Total Bilirubin 1.3 mg/dL (0.3-1.0) H 05/08/18 07:02 AST 21 Units/L (13-39) 05/08/18 07:02 ALT 46 Units/L (7-52) 05/08/18 07:02 - ABG ABG results: PT/INR, D-dimer PT 12.5 Seconds (9.4-12.1) H 05/07/18 14:00 Consult Discharge Plan - Plan Referrals: NONE,PCP [Primary Care Provider] - <Davonte Will - Last Filed: 05/09/18 18:01> Date of Encounter: 05/09/18 Time of Encounter: 15:00 - Time Spent With Patient Total time spent is greater than 50% in coordination of care (as documented) at patient's floor/unit and/or counseling patient: GI History of Present Illness - Data of Consult Requesting Physician: Bello Anderson MD - Consult Narrative History of present illness: Ms. Gonzales is a 28 year old female - Constitutional Vitals: Temp Pulse Resp BP Pulse Ox 99.3 F 81 18 117/75 100 05/09/18 15:32 05/09/18 15:32 05/09/18 15:32 05/09/18 15:32 05/09/18 15:32 Results - Labs CBC & Chem 7: 05/08/18 07:02 05/08/18 07:02 Labs: Last Result Calcium 8.2 mg/dL (8.6-10.3) L 05/08/18 07:02 Entire Visit Hgb 11.9 g/dL (11.5-15.4) 05/08/18 07:02 Hct 35.9 % (35.3-44.9) 05/08/18 07:02 PT 12.5 Seconds (9.4-12.1) H 05/07/18 14:00 Total Bilirubin 1.3 mg/dL (0.3-1.0) H 05/08/18 07:02 AST 21 Units/L (13-39) 05/08/18 07:02 ALT 46 Units/L (7-52) 05/08/18 07:02 - ABG ABG results: PT/INR, D-dimer PT 12.5 Seconds (9.4-12.1) H 05/07/18 14:00 - Attending Attestation I have personally performed a face to face evaluation on this patient. I have reviewed and agree with the care plan. History and Exam by me shows: Patient seen. Patient with upper abdominal pain. Examination: does has tenderness in the upper abdomen and has a ELIZABETH drain in place. Assessment: Patient with status post GB surgery now with bile leak. Rec: ERCP with sphincterotomy and the stent placement procedure including risks discussed with the patient
--- NOTE | 2018-05-09 12:08 | Anesthesia Evaluation PreOp ---
Date of Encounter: 05/09/18 Time of Encounter: 17:38 - Past History Planned Operation: ERCP Cardiac History: Denies any Significant Hx Pulmonary History: Smoker (10 years), Asthma SYNTHETIC FILAMENT SPINNER History: Denies Any Significant HX Other Medical History: Denies Any Significant HX Anesthesia History: Past Anesthesia, Problems (PONV) Test: Negative (05/05/2018) Alcohol Use: none Drug use: none Medications and Allergies Albuterol Sulfate [Albuterol Inhaler] 2 puff IH Q4HR PRN 10/08/16 [History] Buprenorphine HCl [Subutex] 8 mg SL BID 05/05/18 [History] OxyCODONE/APAP 10/325 [Percocet 10/325 MG] 1 each PO Q8HR PRN 7 Days #18 tablet 05/05/18 [Rx] 3 Allergy/AdvReac Type Severity Reaction Status Date / Time No Known Allergies Allergy Verified 05/05/18 07:05 - Meds/Allergy Pre-op Review Medications Reviewed: Yes Allergies Reviewed: Yes Beta Blockers on Current Med List: No Anesthesia Results - Labs 05/08/18 07:02 05/08/18 07:02 Laboratory Tests 05/05/18 05/07/18 07:04 14:00 PT 12.5 H INR 1.1 POC Urine HCG, Qual Negative Anesthesia Exam Vital Signs/O2 Sat, Most Current Temp Pulse Resp BP Pulse Ox 99.3 F 81 18 117/75 100 05/09/18 15:32 05/09/18 15:32 05/09/18 15:32 05/09/18 15:32 05/09/18 15:32 Height: 5'5'' Weight: 156 lbs NPO (# of Hours): 8 Pain Scale: 6 (abdomen) Pain Scale Used: Numeric (1 - 10) - HEENT Pupil (Motor): EOMI Mallampati: II Teeth: Normal Oral Opening: Greater than 3 - SYNTHETIC FILAMENT SPINNER LOC: Oriented SYNTHETIC FILAMENT SPINNER Motor: Normal RUE, Normal LUE, Normal RLE, Normal LLE, Normal Face SYNTHETIC FILAMENT SPINNER Sensory: Normal: RUE, LUE, RLE, LLE, Face - Cardiac Rhythm: Regular Murmur: None - Pulmonary Breath Sounds: bilateral Clear Respiratory Effort: Symmetrical Anesthesia Assess/Plan ASA Score: 2 Modified [place] Scale for Level of Consciousness: Cooperative, oriented, and tranquil Anesthetic Plan: General Monitoring Plan: Standard Monitors Recovery Plan: PACU
[2018-05-09] MEDS ORDERED: Scopolamine Patch 1.5 MG PATCH.TD72 TD ONE (17:40)
[2018-05-09] MEDS ORDERED: *HR* Cisatracurium 10 MG/5 ML VIAL IV ONE (18:03)
[2018-05-09] MEDS ORDERED: *HR* FentaNYL (PF) 100 MCG/2 ML VIAL ONE (18:05)
[2018-05-09] MEDS ORDERED: *HR* Midazolam HCl 2 MG/2 ML VIAL ONE (18:05)
[2018-05-09] MEDS ORDERED: *HR* Propofol 200 MG/20 ML VIAL IVP ONE (18:05)
[2018-05-09] MEDS ORDERED: Lidocaine -MPF 2% 2 ML VIAL ONE (18:07)
[2018-05-09] MEDS ORDERED: Indomethacin 50 MG SUPP.RECT RC ONE (18:11)
[2018-05-09] MEDS ORDERED: *HR* Midazolam HCl 2 MG/2 ML VIAL IVP PRN (18:56)
[2018-05-09] MEDS ORDERED: *HR* Promethazine 25 MG/ML VIAL IVP PRN (18:56)
[2018-05-09] MEDS ORDERED: *HR* OxyCODONE Immed Rel 5 MG TABLET PO PRN (18:56)
[2018-05-09] MEDS ORDERED: *HR* HYDROmorphone 2 MG TABLET PO PRN (18:56)
[2018-05-09] MEDS ORDERED: Neostigmine Methylsulfate 3 MG/3 ML SYRINGE ONE (19:08)
[2018-05-09] MEDS ORDERED: Metoclopramide 10 MG/2 ML VIAL ONE (19:20)
[2018-05-09] MEDS ORDERED: Ondansetron 4 MG/2 ML VIAL ONE (19:20)
[2018-05-09] MEDS ORDERED: Acetaminophen IV 1,000 MG/100 ML INFUS..BTL IVPB ONE (19:29)
--- NOTE | 2018-05-09 19:35 | Anesthesia Evaluation Post Op ---
Date of Encounter: 05/09/18 Time of Encounter: 19:40 - Vital Signs Vital Signs: Vital Signs/O2 Sat/Glucose, Most Current Temp Pulse Resp BP Pulse Ox 05/09/18 19:24 99 F 108 24 82/56 98 05/09/18 17:59 77 16 122/81 99 - Lungs Lungs: Clear Ascult./Percussion - Airway Airway: Non-obstructed - Cardiovascular Regular Rate - Mental Status Mental Status: Alert & Oriented, Answers Appropriately - Pain Pain Scale: 1 - Nausea Vomiting Nausea Vomiting: Not Present - Hydration Hydration: Ice chips - Discharge PostOp Status: Transfer Patient to floor
[2018-05-10] MEDS: Ketorolac 15 MG/ML VIAL IVP SCH ×3 (00:03→11:54)
[2018-05-10] MEDS: OXYCODONE Oral CONC 10 MG/0.5 ML ORAL.SYG SL PRN ×2 (00:42→09:04)
[2018-05-10] MEDS: 0.9 % Sodium Chloride 1,000 ML IVC SCH ×3 (03:08→13:28)
[2018-05-10] MEDS: Ipratropium/Albuterol Neb 3 ML IH SCH ×2 (03:40→10:01)
[2018-05-10] MEDS: Acetaminophen IV 1,000 MG/100 ML INFUS..BTL IVPB SCH ×2 (04:05→09:02)
[2018-05-10 07:33] LABS: Basophils % 0.4 %; Eosinophils # 0.1 K/mcL (0.0-0.6); Eosinophils % 1.8 %; Hematocrit 31.2 % (35.3-44.9); Immature Granulocytes % 0.3 % (0-4); Lymphocytes # 1.1 K/mcL (0.6-4.6); Lymphocytes % 14.3 %; Mean Corpuscular HGB Conc 32.4 g/dL (31.6-35.5); Mean Corpuscular Hemoglobin 29.4 pg (28.0-33.3); Mean Platelet Volume 10.8 fL (9.4-12.4); Monocytes # 0.5 K/mcL (0.0-1.3); Monocytes % 6.8 %; Neutrophils # 6.1 K/mcL (1.6-8.9); Platelet Count 195 K/mcL (140-400); Red Blood Count 3.43 M/mcL (3.82-4.97); Red Cell Distribution Width 13.6 % (11.5-14.5); Segmented Neutrophils % 76.4 %
[2018-05-10 07:54] LABS: Alanine Aminotransferase 30 Units/L (7-52); Albumin/Globulin Ratio 1.3 (1.1-2.2); Alkaline Phosphatase 93 Units/L (34-104); Aspartate Amino Transferase 15 Units/L (13-39); BUN/Creatinine Ratio 13 (6-26); Bilirubin,Direct 0.5 mg/dL (0.0-0.2); Bilirubin,Indirect 0.5 mg/dL (0.0-1.2); Blood Urea Nitrogen 5 mg/dL (6-20); Calcium 8.2 mg/dL (8.6-10.3); Carbon Dioxide 24 mEq/L (23-29); Chloride 110 mEq/L (98-107); Globulin 2.3 g/dL (2.4-3.5); Glucose 87 mg/dL (70-105); Lipase 83 Units/L (11-82); Osmolality,Calculated 285 (280-300); Potassium 3.5 mEq/L (3.5-5.1); Sodium 139 mEq/L (136-145); Total Protein 5.3 g/dL (6.4-8.9); eGFR For Non-African Americans > 60 (> 60)
[2018-05-10 08:17] LABS: Hemoglobin 10.1 g/dL (11.5-15.4)
[2018-05-10] MEDS: Nicotine 21 MG PATCH.TD24 TD SCH (08:56)
[2018-05-10] MEDS: Pantoprazole 40 MG VIAL IVP SCH (08:56)
--- NOTE | 2018-05-10 09:56 | Gastroenterology Progress Note ---
<Pk Sung - Last Filed: 05/10/18 09:57> Date of Encounter: 05/10/18 Time of Encounter: 09:52 - Assessment and plan (1) Bile leak, postoperative Status: Acute Assessment and plan: - Presented with right upper quadrant pain after laparoscopic cholecystectomy on 05/05 - Patient is s/p ERCP with placement of common duct stent. Patient tolerated procedure well. - Stent will be removed after 4-6 weeks. - Patient is ok to discharge from GI standpoint (2) S/P cholecystectomy Status: Acute Assessment and plan: - S/P lap ricky on 05/05/[address] Anderson - Presented with RUQ pain, HIDA scan demonstrated bile leak - S/p ERCP with stent placement (3) Asthma Status: Chronic Assessment and plan: - DuoNebs every 6 hours - Incentive spirometry Qualifiers: Asthma severity: unspecified severity Asthma persistence: intermittent Asthma complication type: uncomplicated Qualified Code(s): J45.20 - Mild intermittent asthma, uncomplicated (4) DVT prophylaxis Status: Acute Assessment and plan: - Ambulate hallways TID wit assistance - EPCDs - Time Spent With Patient Total time spent is greater than 50% in coordination of care (as documented) at patient's floor/unit and/or counseling patient: - Subjective Interval history: Patient was seen and examined at bedside; she states that she feels much better today. She reports that her abdominal pain has largely resolved. She denies fever, chills, nausea, or vomiting. Patient had one bowel movement this morning. ELIZABETH drain observed; contains a small amount of straw colored fluid. She has no complaints at this time. - Constitutional Vitals: Temp Pulse Resp BP Pulse Ox 98.3 F 99 14 124/73 95 05/10/18 07:10 05/10/18 07:10 05/10/18 07:10 05/10/18 07:10 05/10/18 07:10 - Other Additional findings: General: No acute distress ENT: Atraumatic, normocephalic Neck: trachea midline Cardiac: Regular rate and rhythm, S1, S2, no murmurs rubs or gallops. Respiratory: Clear to auscultation bilaterally, no wheezes, rales, or rhonchi Abdomen: Normoactive bowel sounds in all 4 quadrants. No tenderness. ELIZABETH drain has small amount of fluid Psych: Speech is normal, mood appropriate Results - Labs CBC & Chem 7: 05/10/18 07:16 05/10/18 07:16 Labs: Last Result Calcium 8.2 mg/dL (8.6-10.3) L 05/10/18 07:16 Entire Visit Hgb 10.1 g/dL (11.5-15.4) L D 05/10/18 07:16 Hct 31.2 % (35.3-44.9) L 05/10/18 07:16 PT 12.5 Seconds (9.4-12.1) H 05/07/18 14:00 Total Bilirubin 1.0 mg/dL (0.3-1.0) 05/10/18 07:16 AST 15 Units/L (13-39) 05/10/18 07:16 ALT 30 Units/L (7-52) 05/10/18 07:16 Lipase 83 Units/L (11-82) H 05/10/18 07:16 - ABG ABG results: PT/INR, D-dimer PT 12.5 Seconds (9.4-12.1) H 05/07/18 14:00 - Impressions Impressions Cath/Invasive Procedure 05/09/18 18:15 IMPRESSION: Biliary leak is identified, perhaps from the remnant cystic duct. Successful placement of common duct stent. D/ / Jerson Fields MD / Jerson Fields MD Interpreting Provider: Jerson Fields MD Consult Discharge Plan - Plan Additional Instructions: #1 may shower, no tub bath for 2 weeks #2 wash incisions with soap and water and pat dry daily #3 no lifting, pushing, pulling more than 15 pounds for the next 2 weeks #4 no driving until off narcotics for 24 hours and able to safely react in the car #5 may climb stairs Referrals: Autumn Concepcion CNP [Advanced Practice Nurse] - 05/19/18 9:00 am (surgery follow-up) Davonte Will MD [Partnered Physician] - (f/u 6-8 weeks stent removal Web request entered. Office will call with appointment.) <Davonte Will - Last Filed: 05/10/18 17:34> Date of Encounter: 05/10/18 Time of Encounter: 15:00 - Time Spent With Patient Total time spent is greater than 50% in coordination of care (as documented) at patient's floor/unit and/or counseling patient: - Constitutional Vitals: Temp Pulse Resp BP Pulse Ox 98.4 F 84 14 118/74 98 05/10/18 14:34 05/10/18 14:34 05/10/18 14:34 05/10/18 14:34 05/10/18 14:34 Results - Labs CBC & Chem 7: 05/10/18 07:16 05/10/18 07:16 Labs: Last Result Calcium 8.2 mg/dL (8.6-10.3) L 05/10/18 07:16 Entire Visit Hgb 10.1 g/dL (11.5-15.4) L D 05/10/18 07:16 Hct 31.2 % (35.3-44.9) L 05/10/18 07:16 PT 12.5 Seconds (9.4-12.1) H 05/07/18 14:00 Total Bilirubin 1.0 mg/dL (0.3-1.0) 05/10/18 07:16 AST 15 Units/L (13-39) 05/10/18 07:16 ALT 30 Units/L (7-52) 05/10/18 07:16 Lipase 83 Units/L (11-82) H 05/10/18 07:16 - ABG ABG results: PT/INR, D-dimer PT 12.5 Seconds (9.4-12.1) H 05/07/18 14:00 - Impressions Impressions Retroperitoneal Abscess Drainage 05/08/18 08:00 IMPRESSION: Successful CT guided placement of pelvic abscess drainage catheter. D/ / Antoni Malone MD / Antoni Malone MD Interpreting Provider: Antoni Malone MD Cath/Invasive Procedure 05/09/18 18:15 IMPRESSION: Biliary leak is identified, perhaps from the remnant cystic duct. Successful placement of common duct stent. D/ / Jerson Fields MD / Jerson Fields MD Interpreting Provider: Jerson Fields MD - Attending Attestation I examined this patient and my medical decision-making was reviewed with the Resident Physician. I agree with the documented findings, disposition and treatment plan as described except to the extent set forth below. Patient seen. Abdominal pain is much better . On examination ELIZABETH drain is in place. Assessment: Patient with the postop bile leak status post ERCP with stent placement. Rec: Repeat ERCP with stent removal in 6-8 week
--- NOTE | 2018-05-10 14:34 | Discharge Summary ---
<Autumn Concepcion - Last Filed: 05/10/18 14:50> Date of Encounter: 05/10/18 Time of Encounter: 14:30 - Discharge Diagnosis (1) Abdominal pain Priority: Primary Status: Resolved Qualifiers: Abdominal location: right upper quadrant Qualified Code(s): R10.11 - Right upper quadrant pain (2) S/P cholecystectomy Priority: Primary Status: Resolved (3) Asthma Priority: Secondary Status: Chronic Qualifiers: Asthma severity: unspecified severity Asthma persistence: intermittent Asthma complication type: uncomplicated Qualified Code(s): J45.20 - Mild intermittent asthma, uncomplicated (4) Bile leak, postoperative Priority: Primary Status: Resolved General Surgery Exam Initial Vital Signs Temp Pulse Resp BP Pulse Ox 98.1 F 74 14 125/77 98 05/07/18 13:39 05/07/18 13:39 05/07/18 13:39 05/07/18 13:39 05/07/18 13:39 - General physical appearance well developed, well nourished, no distress - Eyes normal ocular movement - ENT normal mucosa, atraumatic, normocephalic - Neck trachea midline - Respiratory normal respiratory effort, clear to auscultation - Cardiovascular Cardiovascular exam: Present: RRR - Abdomen Abdomen general surgery: Present: bowel sounds present, soft, tender (improved) , wound (Pigtail drain with 80ml of bilious drainage noted) Abdominal Tenderness: Present: RUQ - Incision Incision: Present: clean and dry, intact - Integumentary Integumentary general surgery: Present: warm and dry - Neurologic Present: CN 2-12 grossly intact - Musculoskeletal Present: normal gait, normal posture - Psychiatric Psychiatric general surgery: Present: appropriate, oriented to person, oriented to place, oriented to time, speech is normal, memory intact - Hospital Course Hospital course: Ms. Gonzales is a 28 year old female who is s/p cholecystectomy which was complicated by a post-operative bile leak. She is s/p drain placement followed by ERCP with temporary stent placement. The patient's symptoms have resolved and she feels much better. Vitals are stable and she is afebrile. She is tolerating a diet without nausea/vomiting. She is voiding and ambulating without difficulty. We will begin discharge planning to home and plan for outpatient follow-up next week. The patient's drain will be removed prior to discharge per Dr. Anderson's orders. - Time Spent with Patient Total time spent providing and/or coordinating discharge services: Less than 30 minutes - Discharge Medications Home Medications: Albuterol Sulfate [Albuterol Inhaler] 2 puff IH Q4HR PRN 10/08/16 [History] Buprenorphine HCl [Subutex] 8 mg SL BID 05/05/18 [History] Allergies/Adverse Reactions: 3 Allergy/AdvReac Type Severity Reaction Status Date / Time No Known Allergies Allergy Verified 05/05/18 07:05 Date of admission: 05/07/18 13:05 Primary care physician: PCP NONE Consults: 05/07/18 13:36 Consult to Interventional Radiology [CONS] Stat Consulting Provider: Radiology Interventional Cols Reason for Consult: Placement of IR drain for bile leak Time Notified: 13:36 Call Completed: Yes 05/09/18 07:52 Consult to Gastroenterology [CONS] Routine Consulting Provider: Gastroenterology Ashlee Reason for Consult: Consulting Dr. Will for post lap ricky, HIDA scan- positive bile leak Call Completed: No Discharging clinician: Bello Anderson (Damian Concepcion) Anticipated date of discharge: 05/10/18 Labs on day of discharge: Labs from last 24 hours 05/10/18 05/10/18 05/10/18 07:16 07:16 05:46 WBC 8.0 RBC 3.43 L Hgb 10.1 L D Hct 31.2 L MCV 91.0 MCH 29.4 MCHC 32.4 RDW 13.6 Plt Count 195 MPV 10.8 Immature Gran % 0.3 Seg Neutrophils % 76.4 Lymphocytes % 14.3 Monocytes % 6.8 Eosinophils % 1.8 Basophils % 0.4 Neutrophils # 6.1 Lymphocytes # 1.1 Monocytes # 0.5 Eosinophils # 0.1 Basophils # 0.0 Sodium 139 Potassium 3.5 Chloride 110 H Carbon Dioxide 24 BUN 5 L Creatinine 0.38 L Est GFR ( Amer) > 60 Est GFR (Non-Af Amer) > 60 BUN/Creatinine Ratio 13 Glucose 87 POC Glucose 89 Calculated Osmolality 285 Calcium 8.2 L Total Bilirubin 1.0 Direct Bilirubin 0.5 H Indirect Bilirubin 0.5 AST 15 ALT 30 Alkaline Phosphatase 93 Serum Total Protein 5.3 L Albumin 3.0 L Globulin 2.3 L Albumin/Globulin Ratio 1.3 Lipase 83 H 05/10/18 05/09/18 05/09/18 00:29 12:29 06:04 WBC RBC Hgb Hct MCV MCH MCHC RDW Plt Count MPV Immature Gran % Seg Neutrophils % Lymphocytes % Monocytes % Eosinophils % Basophils % Neutrophils # Lymphocytes # Monocytes # Eosinophils # Basophils # Sodium Potassium Chloride Carbon Dioxide BUN Creatinine Est GFR ( Amer) Est GFR (Non-Af Amer) BUN/Creatinine Ratio Glucose POC Glucose 94 88 87 Calculated Osmolality Calcium Total Bilirubin Direct Bilirubin Indirect Bilirubin AST ALT Alkaline Phosphatase Serum Total Protein Albumin Globulin Albumin/Globulin Ratio Lipase - Impressions ITS Impressions Bile Acid Absorption NM 05/07/18 13:59 IMPRESSION: Scintigraphic confirmation of biliary leak. D/ / Tha Hobbs MD / Tha Hobbs MD Interpreting Provider: Tha Hobbs MD Retroperitoneal Abscess Drainage 05/08/18 08:00 IMPRESSION: Successful CT guided placement of pelvic abscess drainage catheter. D/ / Antoni Malone MD / Antoni Malone MD Interpreting Provider: Antoni Malone MD Cath/Invasive Procedure 05/09/18 18:15 IMPRESSION: Biliary leak is identified, perhaps from the remnant cystic duct. Successful placement of common duct stent. D/ / Jerson Fields MD / Jerson Fields MD Interpreting Provider: Jerson Fields MD - Patient Status Disposition: Home, Self-Care Condition: Good Functional capacity at discharge: independent ambulation Overall status at discharge: patient is progressing back to baseline - Discharge Instructions Follow Up With: Autumn Concepcion CNP [Advanced Practice Nurse] - 05/19/18 9:00 am (surgery follow-up) Davonte Will MD [Partnered Physician] - (f/u 6-8 weeks stent removal Web request entered. Office will call with appointment.) Additional Instructions: #1 may shower, no tub bath for 2 weeks #2 wash incisions with soap and water and pat dry daily #3 no lifting, pushing, pulling more than 15 pounds for the next 2 weeks #4 no driving until off narcotics for 24 hours and able to safely react in the car #5 may climb stairs - Diet and Activity Activity: other (See additional instructions) Diet: advance to your usual diet - Attending Attestation For this encounter, I have reviewed the THERAPIST RRT or PA documentation, treatment plan, and medical decision making; and I have had face to face time with this patient. <Bello Anderson - Last Filed: 05/12/18 15:27> Date of Encounter: 05/10/18 General Surgery Exam Initial Vital Signs Temp Pulse Resp BP Pulse Ox 98.1 F 74 14 125/77 98 05/07/18 13:39 05/07/18 13:39 05/07/18 13:39 05/07/18 13:39 05/07/18 13:39 - Hospital Course Hospital course: Ms. Gonzales is a 28 year old female - Time Spent with Patient Total time spent providing and/or coordinating discharge services: Date of admission: 05/07/18 13:05 Primary care physician: PCP NONE Consults: 05/07/18 13:36 Consult to Interventional Radiology [CONS] Stat Consulting Provider: Radiology Interventional Cols Reason for Consult: Placement of IR drain for bile leak Time Notified: 13:36 Call Completed: Yes 05/09/18 07:52 Consult to Gastroenterology [CONS] Routine Consulting Provider: Gastroenterology Ashlee Reason for Consult: Consulting Dr. Will for post lap ricky, HIDA scan- positive bile leak Call Completed: No - Impressions ITS Impressions Bile Acid Absorption NM 05/07/18 13:59 IMPRESSION: Scintigraphic confirmation of biliary leak. D/ / Tha Hobbs MD / Tha Hobbs MD Interpreting Provider: Tha Hobbs MD Retroperitoneal Abscess Drainage 05/08/18 08:00 IMPRESSION: Successful CT guided placement of pelvic abscess drainage catheter. D/ / Antoni Malone MD / Antoni Malone MD Interpreting Provider: Antoni Malone MD Cath/Invasive Procedure 05/09/18 18:15 IMPRESSION: Biliary leak is identified, perhaps from the remnant cystic duct. Successful placement of common duct stent. D/ / Jerson Fields MD / Jerson Fields MD Interpreting Provider: Jerson Fields MD - Attending Attestation The patient is seen and evaluated with the clinical nurse practitioner. We will remove the peritoneal drain prior to discharge. She has ERCP and stent. Her pain is much improved. Bello Anderson MD FACS
[2018-05-10 14:35] VITALS: BP 118/74
== END 2018-05-10 15:54 | disposition home or self-care (01) ==
LOC: 3ANU
PROVIDERS: ADMIT Surgery; ATTEND Surgery
PROC: IRDRAIN (2018-05-08 10:15)